=== PATIENT | male | born 1980 | race American Indian/Alaskan Native ===

== ENCOUNTER 2024-06-06 12:55 | Outpatient (CLI) | payer OTHER ==
--- NOTE | 2024-06-07 08:20 | MRI Report ---
PROCEDURE: Cervical Spine WO INDICATIONS: CERVICAL RADICULOPATHY TECHNIQUE: Noncontrast sagittal T1 spin echo and T2 fast spin echo, sagittal STIR, foraminal oblique sagittal T2 fast spin echo, and axial gradient echo or T2 fast spin echo through the cervical spine. COMPARISON: None. FINDINGS: Image quality: Excellent. Alignment and Curvature: Straightening and mild reversal of the normal cervical lordosis. Mild anter olisthesis of C3 on C4 and C4 on C5. Bone Marrow: Mild degenerative changes, most pronounced at C6-C7. Marrow demonstrates normal overall signal. Spinal Cord: Visualized spinal cord has normal size and signal. No cerebellar tonsillar herniation. Paraspinous Soft Tissues: No paravertebral masses. Prevertebral soft tissues are normal in thicknes s. C2-C3: Disc desiccation. No central canal stenosis. Facet and uncovertebral arthropathy. Mild bilate ral neural foraminal stenosis. C3-C4: Disc desiccation. No central canal stenosis. Facet and uncovertebral arthropathy. Moderate r ight and mild left neuroforaminal stenosis. C4-C5: Disc desiccation. No central canal stenosis. Facet and uncovertebral arthropathy. No signific ant neuroforaminal stenosis. C5-C6: Disc desiccation and mild disc height loss. No significant central canal stenosis. Facet arth ropathy. Moderate left and [id number]-[id number] right neuroforaminal stenosis. C6-C7: Disc desiccation and moderate disc height loss. Mild posterior disc osteophyte complex. No si gnificant central canal stenosis. Facet and uncovertebral arthropathy. Severe left and moderate right neuroforaminal stenosis. C7-T1: Normal in appearance. IMPRESSION: 1.Multilevel degenerative changes of the cervical spine as described above. 2.No significant central canal stenosis. 3.Multilevel neural foraminal stenosis, severe on the left at C6-C7. Reviewed by: Toro Morales MD on 06/07/2024 8:19 AM PDT Approved by: Toro Morales MD on 06/07/2024 8:19 AM PDT Station ID: [id number]
== END 2024-06-06 12:56 | disposition home or self-care (01) ==
LOC: DI 12:55
PROVIDERS: ATTEND Student in an Organized Health Care Education/Training Program
DX: M50.11 Cervical disc disorder with radiculopathy, high cervical region (principal); M99.51 Intervertebral disc stenosis of neural canal of cervical region